=== PATIENT | male | born 1945 | race Caucasian/White ===

== ENCOUNTER 2021-06-27 04:03 | Emergency (ER) | payer MEDICARE, OTHER ==
--- NOTE | 2021-06-27 04:19 | EDM.PDOC ---
ED HPI GENERAL MEDICAL PROBLEM - General Chief Complaint: Chest Pain Stated Complaint: [facility] Time Seen by Provider: 06/27/21 04:19 Source of Information: Reports: Patient History Limitations: Reports: No Limitations - History of Present Illness INITIAL COMMENTS - FREE TEXT/NARRATIVE: Patient is a 75-year-old male who is complaining of having mid chest tightness which he describes as pressure-like which started at 5 PM last night and has continued through the morning. Patient denies any diaphoresis, shortness of breath or nausea vomiting. Symptoms are slightly worse with exertion. He denies any fever or chills. Patient does have mild nonproductive cough but denies all other Covid symptoms. Patient is up-to-date with his Covid vaccines. He denies any swelling to his calves or ankles and denies any bloody or tarry stools. He has not had similar symptoms in the past. Patient did take an aspirin at home and took some of his 's nitroglycerin which did lower his chest pain from 8 out of 10 to 5 out of 10 in intensity. 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: Reports: EKG, IV/IO Mid-Sternal Chest Pain Score (Numeric/FACES): 1 - Related Data Allergies Allergy/AdvReac Type Severity Reaction Status Date / Time No Known Allergies Allergy Verified 06/27/21 04:07 Home Meds: Home Meds Aspirin 81 mg PO DAILY 06/27/21 [History] Past Medical History - Past Health History Medical/Surgical History: Denies Medical/Surgical History HEENT History: Reports: Impaired Vision Other HEENT History: Wears glasses - Past Surgical History GI Surgical History: Reports: Colonoscopy ED ROS GENERAL - Review of Systems Review Of Systems: See Below Constitutional: Reports: No Symptoms HEENT: Reports: No Symptoms Respiratory: Reports: No Symptoms. Denies: Shortness of Breath, Pleuritic Chest Pain Cardiovascular: Reports: Chest Pain. Denies: Dyspnea on Exertion GI/Abdominal: Reports: No Symptoms : Reports: No Symptoms Musculoskeletal: Reports: No Symptoms Skin: Reports: No Symptoms Neurological: Reports: No Symptoms ED EXAM, GENERAL - Physical Exam Exam: See Below Exam Limited By: No Limitations General Appearance: Alert, No Apparent Distress Head: Normocephalic Neck: Supple Respiratory/Chest: No Respiratory Distress, Lungs Clear, Normal Breath Sounds Cardiovascular: Regular Rate, Rhythm, No Edema, No JVD GI/Abdominal: Normal Bowel Sounds, Soft, Non-Tender Back Exam: Normal Inspection Extremities: Normal Inspection Neurological: Alert, Oriented Psychiatric: Normal Affect Skin Exam: Warm, Dry #1 Interpretation Rhythm: NSR P-Wave: Present QRS: Normal ST-T: Depressed (Leads V4 [address] depression approximately 1 mm. No reciprocal changes appreciated.) EKG Interpretation Comments: Lateral ischemia without reciprocal changes. Course - Vital Signs Text/Narrative:: Patient's elevated D-dimer at 1.53 turned out to be negative for PE since none was shown on his CTA of the chest. Patient's elevated troponin at 0.843 and EKG showing ischemia in the lateral leads is concerning. He had increased pain while in the department which went up to 9 out of 10 intensity and now radiates to his left arm. Patient was then given some morphine and started on a heparin drip which made him more comfortable but we are also starting him on a heparin drip. Patient was discussed with Dr. Richardson brake reliner on duty at [facility] in [place] who recommended that we start him on Lopressor 25 mg p.o. and also 40 of Lipitor. He is recommending patient be transferred to another hospital since they're unable to accept him currently and we have called [facility] in [place] who were not able to accept him also [facility] is not able to take any N STEMI patients. We currently have a call out to [facility]. Patient's blood pressure is now 126/74 with a pulse of 92. [facility] has no beds but patient has been accepted by Dr. Sanchez at [facility] who is the emergency department physician who is excepted him in direct transfer to their emergency department. He has asked that we fax the EKG to him which we have just done. After starting the nitro drip patient is completely pain-free prior to his being transferred to [facility] Last Recorded V/S: Last Vital Signs Temp 96.8 F L 06/27/21 04:08 Pulse 98 06/27/21 06:35 Resp 13 06/27/21 04:08 BP 126/78 06/27/21 06:35 Pulse Ox 97 06/27/21 04:08 - Orders/Labs/Meds Labs: Laboratory Tests 06/27/21 06/27/21 06/27/21 Range/Units 04:21 04:21 04:21 WBC 7.80 (4.23-9.07) K/mm3 RBC 4.43 L (4.63-6.08) M/mm3 Hgb 14.5 (13.7-17.5) gm/dl Hct 44.0 (40.1-51.0) % MCV 99.3 H (79.0-92.2) fl MCH 32.7 H (25.7-32.2) pg MCHC 33.0 (32.2-35.5) g/dl RDW Std Deviation 49.3 H (35.1-43.9) fL Plt Count 179 (163-337) K/mm3 MPV 10.6 (9.4-12.3) fl Neutrophils % (Manual) 60 (40-60) % Band Neutrophils % 0 (0-10) % Lymphocytes % (Manual) 26 (20-40) % Atypical Lymphs % 0 % Monocytes % (Manual) 12 H (2-10) % Eosinophils % (Manual) 1 (0.8-7.0) % Basophils % (Manual) 1 (0.2-1.2) Platelet Estimate Adequate RBC Morph Comment Normal APTT (21.7-31.4) SECONDS D-Dimer, Quantitative 1.53 H (0.19-0.50) mg/L Sodium 143 (136-145) mEq/L Potassium 3.8 (3.5-5.1) mEq/L Chloride 106 (98-107) mEq/L Carbon Dioxide 29 (21-32) mEq/L Anion Gap 11.8 (5-15) BUN 21 H (7-18) mg/dL Creatinine 1.1 (0.7-1.3) mg/dL Est Cr Clr Drug Dosing 47.84 mL/min Estimated GFR (MDRD) > 60 (>60) mL/min BUN/Creatinine Ratio 19.1 H (14-18) Glucose 104 H (70-99) mg/dL Calcium 8.2 L (8.5-10.1) mg/dL Total Bilirubin 0.6 (0.2-1.0) mg/dL AST 23 (15-37) U/L ALT 26 (16-63) U/L Alkaline Phosphatase 63 (46-116) U/L Troponin I 0.843 H* (0.00-0.056) ng/mL Total Protein 6.8 (6.4-8.2) g/dl Albumin 3.8 (3.4-5.0) g/dl Globulin 3.0 gm/dL Albumin/Globulin Ratio 1.3 (1-2) SARS-CoV-2 RNA (LEXY) (NEGATIVE) 06/27/21 06/27/21 Range/Units 04:21 06:10 WBC (4.23-9.07) K/mm3 RBC (4.63-6.08) M/mm3 Hgb (13.7-17.5) gm/dl Hct (40.1-51.0) % MCV (79.0-92.2) fl MCH (25.7-32.2) pg MCHC (32.2-35.5) g/dl RDW Std Deviation (35.1-43.9) fL Plt Count (163-337) K/mm3 MPV (9.4-12.3) fl Neutrophils % (Manual) (40-60) % Band Neutrophils % (0-10) % Lymphocytes % (Manual) (20-40) % Atypical Lymphs % % Monocytes % (Manual) (2-10) % Eosinophils % (Manual) (0.8-7.0) % Basophils % (Manual) (0.2-1.2) Platelet Estimate RBC Morph Comment APTT 27.4 (21.7-31.4) SECONDS D-Dimer, Quantitative (0.19-0.50) mg/L Sodium (136-145) mEq/L Potassium (3.5-5.1) mEq/L Chloride (98-107) mEq/L Carbon Dioxide (21-32) mEq/L Anion Gap (5-15) BUN (7-18) mg/dL Creatinine (0.7-1.3) mg/dL Est Cr Clr Drug Dosing mL/min Estimated GFR (MDRD) (>60) mL/min BUN/Creatinine Ratio (14-18) Glucose (70-99) mg/dL Calcium (8.5-10.1) mg/dL Total Bilirubin (0.2-1.0) mg/dL AST (15-37) U/L ALT (16-63) U/L Alkaline Phosphatase (46-116) U/L Troponin I (0.00-0.056) ng/mL Total Protein (6.4-8.2) g/dl Albumin (3.4-5.0) g/dl Globulin gm/dL Albumin/Globulin Ratio (1-2) SARS-CoV-2 RNA (LEXY) Negative (NEGATIVE) Meds: Medications Discontinued Medications Generic Name Dose Route Start Last Admin Trade Name Freq PRN Reason Stop Dose Admin Acetaminophen 975 mg 06/27/21 04:21 06/27/21 04:35 Acetaminophen 325 Mg Tab PO 06/27/21 04:22 975 mg NOW STA Administration Atorvastatin Calcium 40 mg 06/27/21 06:28 06/27/21 06:35 Atorvastatin 40 Mg Tab PO 06/27/21 06:29 40 mg ONETIME ONE Administration Heparin Sodium (Porcine) 5,000 units 06/27/21 05:54 06/27/21 06:29 Heparin Sodium 5,000 Units/Ml Vial IVPUSH 06/27/21 05:55 Not Given ONETIME ONE Heparin Sodium (Porcine) 4,000 units 06/27/21 05:54 06/27/21 06:19 Heparin Sodium 5,000 Units/Ml Vial IVPUSH 06/27/21 05:55 4,000 units .BOLUS ONE Administration Sodium Chloride 100 mls @ 60 mls/min 06/27/21 05:30 06/27/21 05:59 Normal Saline IV 60 mls/min ASDIRECTED PALAK Administration Heparin Sodium/Dextrose 25,000 units in 500 mls @ 15.241 mls/hr 06/27/21 06:00 06/27/21 06:20 Heparin 25,000 Units In D5w 500 Ml IV 12 units/kg/hr TITRATE PALAK 15.241 mls/hr Administration Protocol 12 UNITS/KG/HR Nitroglycerin/Dextrose 25 mg in 250 mls @ 3 mls/hr 06/27/21 06:45 06/27/21 06:48 Nitroglycerin 25 Mg/D5w 250 Ml IV 5 mcg/min TITRATE PALAK 3 mls/hr Administration Protocol 5 MCG/MIN Iopamidol 100 ml 06/27/21 05:30 06/27/21 05:59 Iopamidol 755 Mg/Ml 100 Ml Bottle IVPUSH 06/27/21 05:31 100 ml ONETIME ONE Administration Metoprolol Tartrate 25 mg 06/27/21 06:27 06/27/21 06:35 Metoprolol Tartrate 25 Mg Tab PO 06/27/21 06:28 25 mg ONETIME ONE Administration Morphine Sulfate 4 mg 06/27/21 06:07 06/27/21 06:22 Morphine 4 Mg/Ml Syringe IVPUSH 06/27/21 06:08 4 mg ONETIME ONE Administration Nitroglycerin 1 gm 06/27/21 04:21 06/27/21 04:35 Nitroglycerin 2% Oint 1 Gm Ud Packet TOP 06/27/21 04:22 1 gm ONETIME ONE Administration Sodium Chloride 10 ml 06/27/21 05:30 06/27/21 05:59 Sodium Chloride 0.9% 10 Ml Sdv FLUSH 06/27/21 05:31 10 ml ONETIME ONE Administration Departure - Departure Time of Disposition: 07:06 Disposition: DC/Tfer to Acute Hospital 02 Reason for Transfer *Q: Primary PCI Indicated Condition: Fair Clinical Impression: Non-STEMI (non-ST elevated myocardial infarction), Acute coronary syndrome Referrals: PCP,Not In Area [Primary Care Provider] - Sepsis Event Note (ED) - Evaluation Sepsis Screening Result: No Definite Risk
[2021-06-27] MEDS ORDERED: Acetaminophen 325 MG Tab PO STA (04:21)
[2021-06-27] MEDS ORDERED: Nitroglycerin 2% Oint 1 GM UD Packet TOP ONE (04:21)
[2021-06-27] MEDS ORDERED: Sodium Chloride 0.9% 10 ML SDV FLUSH ONE (05:30)
[2021-06-27] MEDS ORDERED: Iopamidol 755 Mg/ML 100 ML Bottle IVPUSH ONE (05:30)
[2021-06-27] MEDS ORDERED: Sodium Chloride 0.9% 100 ML IV SCH (05:30)
[2021-06-27] MEDS ORDERED: Heparin Sodium 5,000 Units/ML Vial IVPUSH ONE ×2 (05:54)
--- NOTE | 2021-06-27 05:55 | CR ---
Chest: Frontal view of the chest was obtained. Comparison: No prior chest imaging is available. Limitations: Study is somewhat suboptimal (overexposed in technique) which obscures portions of the upper left lung. No definite acute parenchymal change is seen within either lung. Heart size and mediastinum are normal. Bony structure shows minimal scattered degenerative change with no acute findings seen within the visualized osseous structures. Impression: 1. Slightly suboptimal technique. 2. No definite acute intrathoracic process is otherwise seen. Diagnostic code #2
[2021-06-27] MEDS ORDERED: Heparin Sodium/D5W 25,000 UNITS/500 ML BAG IV SCH (06:00)
[2021-06-27] MEDS ORDERED: Morphine 4 MG/ML Syringe IVPUSH ONE (06:07)
--- NOTE | 2021-06-27 06:23 | CT ---
CT chest Technique: Multiple axial sections were obtained through the chest. Intravenous contrast was utilized. Study has been performed as a pulmonary angiogram protocol. Comparison: Prior chest x-ray performed earlier on the same day (4:34 AM). No prior chest CT is available. Findings: Pulmonary arteries are well opacified. No filling defects are seen to indicate pulmonary embolism. Ascending aorta is slightly aneurysmal with AP dimension of 3.3 cm. Descending aorta appears within normal limits. Mediastinum shows no adenopathy. No axillary adenopathy is seen. Heart size appears slightly enlarged. No pericardial thickening is appreciated Cyst is noted within the left kidney measuring 2.3 cm. Multiple calcifications are seen within the kidneys compatible with nonobstructing stones. Calcifications are also seen within the spleen compatible with calcified granulomas. There is coronary artery calcification being seen. Lungs show minimal bibasilar atelectasis. Slight density is also noted within the right upper lung most likely representing mild area of scarring. Several other small densities are seen within the right upper lung which are also felt to represent minimal areas of scarring. No acute parenchymal change is seen. Bone window settings were reviewed. Scattered disc space narrowing and endplate spurring is noted within the spine. No acute osseous abnormality is appreciated. Impression: 1. Slight bibasilar atelectasis. Mild areas of scarring within the right upper lung. No acute parenchymal change is seen. 2. Cyst within the left kidney. Nonobstructing calculi within both kidneys. Calcified granulomas are seen within the spleen. Coronary artery calcification. Mild aneurysmal dilatation of the ascending aorta. 3. No findings of pulmonary embolism. Diagnostic code #3
[2021-06-27] MEDS ORDERED: Metoprolol Tartrate 25 MG Tab PO ONE (06:27)
[2021-06-27] MEDS ORDERED: atorvaSTATin 40 MG Tab PO ONE (06:28)
[2021-06-27 06:36] VITALS: BP 126/78; PULSE 98
[2021-06-27] MEDS ORDERED: Nitroglycerin/D5W 25 MG/250 ML BOTTLE IV SCH (06:45)
--- NOTE | 2021-07-01 05:05 | PCM.EKG ---
#1 Interpretation EKG Date: 06/27/21 Time: 05:50 Rhythm: NSR Rate (Beats/Min): 82 [place]: Normal P-Wave: Present QRS: Normal ST-T: Depressed (V3-V6) QT: Normal
== END 2021-06-27 08:20 ==
LOC: JD.ED 04:03
DX: I21.4 Non-ST elevation (NSTEMI) myocardial infarction (principal); I24.9 Acute ischemic heart disease, unspecified; Z79.82 Long term (current) use of aspirin; Z20.822 Contact with and (suspected) exposure to COVID-19
CPT/HCPCS: 36415; 71045; 71275; 80053; 84484; 85007; 85027; 85379; 85730; 93005; 96365; 96366; 96368; 96375; 99285; A9270; J1644; J2270; J3490; Q9967; U0002

== ENCOUNTER 2021-10-07 09:24 | Emergency (ER) | payer MEDICARE ==
[2021-10-07] MEDS ORDERED: Sodium Chloride 0.9% 10 ML Syringe FLUSH PRN (09:50)
[2021-10-07] MEDS ORDERED: Acetaminophen 325 MG Tab PO ONE (09:51)
[2021-10-07] MEDS ORDERED: Sodium Chloride 0.9% 1,000 ML IV SCH (10:00)
[2021-10-07 11:25] LABS: CORONAVIRUS COVID-19 NAA POSITIVE (NEGATIVE)
[2021-10-07 14:24] VITALS: BP 154/73; PULSE 110
== END 2021-10-07 14:10 | disposition home or self-care (01) ==
LOC: JD.ED 09:24
DX: U07.1 COVID-19 (principal); I25.10 Atherosclerotic heart disease of native coronary artery without angina pectoris; I25.2 Old myocardial infarction; Z79.899 Other long term (current) drug therapy; Z79.02 Long term (current) use of antithrombotics/antiplatelets
CPT/HCPCS: 0241U; 36415; 71045; 71045-26; 80053; 83605; 85025; 86140; 86308; 87651-QW; 99284; 99284-25; A9270-GY; J7030

== ENCOUNTER 2021-10-12 16:27 | Inpatient (IN) | payer MEDICARE ==
[2021-10-12] MEDS ORDERED: Acetaminophen 325 MG Tab PO ONE (16:42)
[2021-10-12] MEDS ORDERED: Dextrose 5%-Lactated Ringers 1,000 ML IV SCH ×2 (16:45→21:30)
[2021-10-12] MEDS ORDERED: REMDESIVIR 200 MG in Sodium Chloride 0.9% 250 ML IV ONE (20:55)
[2021-10-12] MEDS ORDERED: cefTRIAXone 2 GM in Sodium Chloride 0.9% 100 ML IV ONE (21:03)
[2021-10-12] MEDS ORDERED: Sodium Chloride 0.9% 250 ML IV ONE (22:30)
[2021-10-13] MEDS ORDERED: Dexamethasone 4 MG Tab PO SCH (09:00)
[2021-10-13] MEDS ORDERED: Dexamethasone 10 MG/ML SDV IVPUSH SCH (09:00)
[2021-10-13] MEDS ORDERED: Multivitamins with Iron/Calcium/Folic Acid/Minerals Tab PO SCH (09:00)
[2021-10-13] MEDS: Aspirin 81 MG Tab.EC PO SCH (09:45)
[2021-10-13] MEDS: Famotidine 20 MG Tab PO SCH (09:45)
[2021-10-13] MEDS: Calcium Carbonate 600 MG Tab PO SCH (09:45)
[2021-10-13] MEDS: Multivitamin Tab PO SCH (09:46)
[2021-10-13] MEDS: Lisinopril 5 MG Tab PO SCH (09:46)
[2021-10-13] MEDS: Metoprolol Tartrate 25 MG Tab PO SCH ×2 (09:46→21:11)
[2021-10-13] MEDS: atorvaSTATin 40 MG Tab PO SCH (09:46)
[2021-10-13] MEDS: Clopidogrel 75 MG Tab PO SCH (09:46)
[2021-10-13] MEDS: Dexamethasone 4 MG Tab PO SCH (09:47)
[2021-10-13] MEDS ORDERED: REMDESIVIR 100 MG in Sodium Chloride 0.9% 100 ML IV SCH (21:00)
[2021-10-13] MEDS: QUEtiapine 25 MG Tab PO SCH (21:09)
[2021-10-13] MEDS: REMDESIVIR 100 MG in Sodium Chloride 0.9% 250 ML IV SCH (21:10)
[2021-10-14] MEDS: Metoprolol Tartrate 25 MG Tab PO SCH ×2 (09:16→21:01)
[2021-10-14] MEDS: Aspirin 81 MG Tab.EC PO SCH (09:16)
[2021-10-14] MEDS: Multivitamin Tab PO SCH (09:16)
[2021-10-14] MEDS: Famotidine 20 MG Tab PO SCH (09:16)
[2021-10-14] MEDS: Lisinopril 5 MG Tab PO SCH (09:16)
[2021-10-14] MEDS: Dexamethasone 4 MG Tab PO SCH (09:17)
[2021-10-14] MEDS: Clopidogrel 75 MG Tab PO SCH (09:17)
[2021-10-14] MEDS: atorvaSTATin 40 MG Tab PO SCH (09:18)
[2021-10-14] MEDS: Calcium Carbonate 600 MG Tab PO SCH (09:18)
[2021-10-14] MEDS: Carbidopa/Levodopa 10-100 MG Tab PO SCH ×2 (15:02→21:01)
[2021-10-14] MEDS: Sertraline 50 MG Tab PO SCH (17:20)
[2021-10-14] MEDS: QUEtiapine 25 MG Tab PO SCH (21:01)
[2021-10-14] MEDS: REMDESIVIR 100 MG in Sodium Chloride 0.9% 250 ML IV SCH (21:06)
[2021-10-15] MEDS: Calcium Carbonate 600 MG Tab PO SCH (08:20)
[2021-10-15] MEDS: Famotidine 20 MG Tab PO SCH (08:20)
[2021-10-15] MEDS: Sertraline 50 MG Tab PO SCH (08:21)
[2021-10-15] MEDS: Carbidopa/Levodopa 10-100 MG Tab PO SCH ×2 (08:21→21:37)
[2021-10-15] MEDS: atorvaSTATin 40 MG Tab PO SCH (08:21)
[2021-10-15] MEDS: Multivitamin Tab PO SCH (08:21)
[2021-10-15] MEDS: Lisinopril 5 MG Tab PO SCH (08:21)
[2021-10-15] MEDS: Aspirin 81 MG Tab.EC PO SCH (08:22)
[2021-10-15] MEDS: Clopidogrel 75 MG Tab PO SCH (08:22)
[2021-10-15] MEDS: Metoprolol Tartrate 25 MG Tab PO SCH ×2 (08:22→21:37)
[2021-10-15] MEDS ORDERED: LORazepam 2 MG/ML SDV IVPUSH ONE (18:37)
[2021-10-15] MEDS ORDERED: Sodium Chloride 0.9% 500 ML IV ONE (19:19)
[2021-10-15] MEDS ORDERED: Sodium Chloride 0.9% 500 ML ONE (19:21)
[2021-10-15] MEDS: QUEtiapine 25 MG Tab PO SCH (21:37)
[2021-10-15] MEDS: REMDESIVIR 100 MG in Sodium Chloride 0.9% 250 ML IV SCH (21:40)
[2021-10-16] MEDS: Calcium Carbonate 600 MG Tab PO SCH (09:38)
[2021-10-16] MEDS: Clopidogrel 75 MG Tab PO SCH (09:42)
[2021-10-16] MEDS: Sertraline 50 MG Tab PO SCH (09:42)
[2021-10-16] MEDS: Multivitamin Tab PO SCH (09:43)
[2021-10-16] MEDS: Aspirin 81 MG Tab.EC PO SCH (09:43)
[2021-10-16] MEDS: Lisinopril 5 MG Tab PO SCH (09:43)
[2021-10-16] MEDS: Famotidine 20 MG Tab PO SCH (09:43)
[2021-10-16] MEDS: Carbidopa/Levodopa 10-100 MG Tab PO SCH ×2 (09:43→20:01)
[2021-10-16] MEDS: atorvaSTATin 40 MG Tab PO SCH (09:43)
[2021-10-16] MEDS: Metoprolol Tartrate 25 MG Tab PO SCH ×2 (09:44→20:01)
[2021-10-16] MEDS ORDERED: Enoxaparin 30 MG/0.3 ML Syringe SUBCUT SCH (11:00)
[2021-10-16] MEDS ORDERED: Haloperidol Lactate 5 MG/ML SDV IVPUSH ONE (12:26)
[2021-10-16] MEDS: REMDESIVIR 100 MG in Sodium Chloride 0.9% 250 ML IV SCH (20:01)
[2021-10-16] MEDS: QUEtiapine 25 MG Tab PO SCH (20:02)
[2021-10-17] MEDS: Famotidine 20 MG Tab PO SCH (08:21)
[2021-10-17] MEDS: Aspirin 81 MG Tab.EC PO SCH (08:21)
[2021-10-17] MEDS: Calcium Carbonate 600 MG Tab PO SCH (08:21)
[2021-10-17] MEDS: Metoprolol Tartrate 25 MG Tab PO SCH ×2 (08:22→20:47)
[2021-10-17] MEDS: Carbidopa/Levodopa 10-100 MG Tab PO SCH ×2 (08:22→20:47)
[2021-10-17] MEDS: Multivitamin Tab PO SCH (08:22)
[2021-10-17] MEDS: atorvaSTATin 40 MG Tab PO SCH (08:22)
[2021-10-17] MEDS: Sertraline 50 MG Tab PO SCH (08:22)
[2021-10-17] MEDS: Clopidogrel 75 MG Tab PO SCH (08:25)
[2021-10-17] MEDS: Lisinopril 5 MG Tab PO SCH (08:25)
[2021-10-17] MEDS: Enoxaparin 40 MG/0.4 ML Syringe SUBCUT SCH (12:45)
[2021-10-17] MEDS ORDERED: LORazepam 2 MG/ML SDV IVPUSH ONE (21:29)
[2021-10-18] MEDS: Carbidopa/Levodopa 10-100 MG Tab PO SCH ×2 (09:38→22:27)
[2021-10-18] MEDS: Sertraline 50 MG Tab PO SCH (09:38)
[2021-10-18] MEDS: Calcium Carbonate 600 MG Tab PO SCH (09:38)
[2021-10-18] MEDS: Metoprolol Tartrate 25 MG Tab PO SCH ×2 (09:38→22:22)
[2021-10-18] MEDS: Famotidine 20 MG Tab PO SCH (09:39)
[2021-10-18] MEDS: Multivitamin Tab PO SCH (09:39)
[2021-10-18] MEDS: Clopidogrel 75 MG Tab PO SCH (09:39)
[2021-10-18] MEDS: Lisinopril 5 MG Tab PO SCH (09:39)
[2021-10-18] MEDS: atorvaSTATin 40 MG Tab PO SCH (09:39)
[2021-10-18] MEDS: Aspirin 81 MG Tab.EC PO SCH (09:39)
[2021-10-18] MEDS: Enoxaparin 40 MG/0.4 ML Syringe SUBCUT SCH (11:58)
[2021-10-18] MEDS ORDERED: LORazepam 2 MG/ML SDV ONE (22:13)
[2021-10-18] MEDS ORDERED: LORazepam 1 MG Tab PO ONE (22:45)
[2021-10-19] MEDS: Clopidogrel 75 MG Tab PO SCH (09:43)
[2021-10-19] MEDS: atorvaSTATin 40 MG Tab PO SCH (09:43)
[2021-10-19] MEDS: Calcium Carbonate 600 MG Tab PO SCH (09:43)
[2021-10-19] MEDS: Multivitamin Tab PO SCH (09:43)
[2021-10-19] MEDS: Carbidopa/Levodopa 10-100 MG Tab PO SCH ×2 (09:43→20:22)
[2021-10-19] MEDS: Lisinopril 5 MG Tab PO SCH (09:43)
[2021-10-19] MEDS: Aspirin 81 MG Tab.EC PO SCH (09:43)
[2021-10-19] MEDS: Sertraline 50 MG Tab PO SCH (09:43)
[2021-10-19] MEDS: Metoprolol Tartrate 25 MG Tab PO SCH ×2 (09:44→20:22)
[2021-10-19] MEDS: Famotidine 20 MG Tab PO SCH (09:44)
[2021-10-19] MEDS: Enoxaparin 40 MG/0.4 ML Syringe SUBCUT SCH (12:34)
[2021-10-19] MEDS: Haloperidol 0.5 MG Tab PO PRN ×2 (16:13→23:16)
[2021-10-19] MEDS ORDERED: LORazepam 2 MG/ML SDV IVPUSH ONE (18:23)
[2021-10-20] MEDS: Metoprolol Tartrate 25 MG Tab PO SCH (10:20)
[2021-10-20] MEDS: Calcium Carbonate 600 MG Tab PO SCH (10:20)
[2021-10-20] MEDS: Clopidogrel 75 MG Tab PO SCH (10:21)
[2021-10-20] MEDS: atorvaSTATin 40 MG Tab PO SCH (10:21)
[2021-10-20] MEDS: Famotidine 20 MG Tab PO SCH (10:21)
[2021-10-20] MEDS: Carbidopa/Levodopa 10-100 MG Tab PO SCH (10:21)
[2021-10-20] MEDS: Aspirin 81 MG Tab.EC PO SCH (10:22)
[2021-10-20] MEDS: Multivitamin Tab PO SCH (10:22)
[2021-10-20] MEDS: Sertraline 50 MG Tab PO SCH (10:22)
[2021-10-20] MEDS: Lisinopril 5 MG Tab PO SCH (10:22)
[2021-10-20 10:23] VITALS: PULSE 73
[2021-10-20 11:20] VITALS: BP 131/66
== END 2021-10-20 13:15 | DRG 177 ==
LOC: JD.ED 16:27 → JD.ICU 19:48
PROVIDERS: ADMIT Pediatrics; ATTEND Pediatrics
PROC: XW033E5 Introduction of Remdesivir Anti-infective into Peripheral Vein, Percutaneous Approach, New Technology Group 5 (ICD-10-PCS; principal; 2021-10-12)
PROC: 8E0ZXY6 Isolation (ICD-10-PCS; 2021-10-12)
PROC: 3E0DX3Z Introduction of Anti-inflammatory into Mouth and Pharynx, External Approach (ICD-10-PCS; 2021-10-14)
DX: U07.1 COVID-19 (principal); S09.90XA Unspecified injury of head, initial encounter; W19.XXXA Unspecified fall, initial encounter; J96.21 Acute and chronic respiratory failure with hypoxia; J12.82 Pneumonia due to coronavirus disease 2019; I25.810 Atherosclerosis of coronary artery bypass graft(s) without angina pectoris; Z91.81 History of falling; I50.9 Heart failure, unspecified; G20 Parkinson's disease; F02.80 Dementia in other diseases classified elsewhere, unspecified severity, without behavioral disturbance, psychotic disturbance, mood disturbance, and anxiety; Z95.5 Presence of coronary angioplasty implant and graft; Z79.02 Long term (current) use of antithrombotics/antiplatelets; Z79.82 Long term (current) use of aspirin; Z79.899 Other long term (current) drug therapy; H54.7 Unspecified visual loss; I25.10 Atherosclerotic heart disease of native coronary artery without angina pectoris; I25.2 Old myocardial infarction; J44.9 Chronic obstructive pulmonary disease, unspecified; N40.0 Benign prostatic hyperplasia without lower urinary tract symptoms; G89.29 Other chronic pain; M54.9 Dorsalgia, unspecified; M54.2 Cervicalgia; M19.90 Unspecified osteoarthritis, unspecified site; M81.0 Age-related osteoporosis without current pathological fracture; Z86.73 Personal history of transient ischemic attack (TIA), and cerebral infarction without residual deficits
CPT/HCPCS: 36415; 36600; 70450; 71045; 80053; 81001; 82803; 83605; 83615; 83735; 83880; 84484; 85025; 85379; 85610; 85730; 86140; 87040 ×2; 93005; A9270; J7121; 80048; 80076; 82728; 84145; 93010; 97116-GP; 97162-GP; 97530-GP; 99285; J0696; J1630; J1650; J2060; J7030; J7050; J8540

== ENCOUNTER 2021-12-23 07:19 | Emergency (ER) | payer MEDICARE, OTHER ==
[2021-12-23] MEDS ORDERED: Sodium Chloride 0.9% 1,000 ML IV ONE (07:25)
[2021-12-23] MEDS ORDERED: Sodium Chloride 0.9% 10 ML Syringe FLUSH PRN (07:26)
[2021-12-23] MEDS ORDERED: fentaNYL 100 MCG/2 ML SDV IVPUSH ONE (07:26)
[2021-12-23 10:17] VITALS: BP 112/77; PULSE 77
== END 2021-12-23 10:17 ==
LOC: JD.ED 07:19
DX: S93.602A Unspecified sprain of left foot, initial encounter (principal); I25.10 Atherosclerotic heart disease of native coronary artery without angina pectoris; I25.2 Old myocardial infarction; N40.0 Benign prostatic hyperplasia without lower urinary tract symptoms; M19.90 Unspecified osteoarthritis, unspecified site; Z79.82 Long term (current) use of aspirin; Z79.899 Other long term (current) drug therapy; W18.30XA Fall on same level, unspecified, initial encounter
CPT/HCPCS: 36415; 73610; 73630; 80053; 81003; 82553; 85007; 85027; 96374; 99284; J3010; J3490; J7030

== ENCOUNTER 2021-12-27 10:31 | Emergency (ER) | payer MEDICARE, OTHER ==
[2021-12-27 13:54] VITALS: BP 132/77; PULSE 68
== END 2021-12-27 13:54 | disposition home or self-care (01) ==
LOC: JD.ED 10:31
DX: M25.552 Pain in left hip (principal); I50.9 Heart failure, unspecified; I25.10 Atherosclerotic heart disease of native coronary artery without angina pectoris; I25.2 Old myocardial infarction; J44.9 Chronic obstructive pulmonary disease, unspecified; Z86.16 Personal history of COVID-19; Z79.899 Other long term (current) drug therapy; W22.8XXA Striking against or struck by other objects, initial encounter
CPT/HCPCS: 73502-26-RT; 73502-RT; 99283-25

== ENCOUNTER 2022-07-19 14:08 | Emergency (ER) | payer MEDICARE, OTHER ==
[2022-07-19 16:07] LABS: ESTIMATED GFR 69 mL/min (>60)
[2022-07-19 16:30] VITALS: PULSE 96
[2022-07-19 19:43] VITALS: BP 130/78
== END 2022-07-19 18:10 ==
LOC: JD.ED 14:08
DX: R55 Syncope and collapse (principal); I25.10 Atherosclerotic heart disease of native coronary artery without angina pectoris; I25.2 Old myocardial infarction; Z88.8 Allergy status to other drugs, medicaments and biological substances; Z86.73 Personal history of transient ischemic attack (TIA), and cerebral infarction without residual deficits; Z86.16 Personal history of COVID-19
CPT/HCPCS: 36415; 70450; 70450-26; 80053; 81001; 84484; 85025; 86140; 93005; 99285

== ENCOUNTER 2022-08-03 17:17 | Emergency (ER) | payer MEDICARE, OTHER ==
[2022-08-03] MEDS ORDERED: Sodium Chloride 0.9% 10 ML Syringe FLUSH PRN (17:47)
[2022-08-03 19:54] VITALS: BP 177/97; PULSE 93
== END 2022-08-03 20:31 | disposition home or self-care (01) ==
LOC: JD.ED 17:17
DX: R07.89 Other chest pain (principal); I25.10 Atherosclerotic heart disease of native coronary artery without angina pectoris; I11.0 Hypertensive heart disease with heart failure; I25.2 Old myocardial infarction; J44.9 Chronic obstructive pulmonary disease, unspecified; Z88.8 Allergy status to other drugs, medicaments and biological substances; Z79.899 Other long term (current) drug therapy
CPT/HCPCS: 36415; 71045; 80053; 84484; 85025; 93005; 99285

== ENCOUNTER 2024-07-31 09:07 | Emergency (ER) | payer MEDICARE ==
[2024-07-31] MEDS ORDERED: Sodium Chloride 0.9% 10 ML Syringe FLUSH PRN (09:28)
[2024-07-31 09:57] LABS: BASOPHILS ABSOLUTE AUTO 0.1 K/mm3 (0.0-0.2); BASOPHILS PERCENT AUTO 0.4 % (0.0-1.0); EOSINOPHILS PERCENT AUTO 0.1 % (0.0-6.0); HEMATOCRIT 40.6 % (42.0-52.0); HEMOGLOBIN 13.1 gm/dl (14.0-18.0); IMMATURE GRAN ABSOLUTE AUTO 0.04 K/mm3 (0.00-0.05); IMMATURE GRAN PERCENT AUTO 0.3 % (0.0-0.4); LYMPHOCYTES PERCENT AUTO 15.1 % (24.0-44.0); MEAN CORPUSCULAR HEMOGLOBIN 33.3 pg (28.0-32.0); MEAN CORPUSCULAR HGB CONC 32.3 g/dl (32.0-36.0); MEAN CORPUSCULAR VOLUME 103.3 fl (83.0-99.0); MEAN PLATELET VOLUME 10.9 fl (9.4-12.4); MONOCYTES ABSOLUTE AUTO 0.9 K/mm3 (0.0-0.8); MONOCYTES PERCENT AUTO 6.4 % (0.0-8.0); NEUTROPHILS ABSOLUTE AUTO 10.5 K/mm3 (1.8-7.7); NEUTROPHILS PERCENT AUTO 77.7 % (41.0-71.0); PLATELET COUNT,PLT 181 K/mm3 (150-400); RED BLOOD CELL COUNT 3.93 M/mm3 (4.52-5.90); WHITE BLOOD CELL COUNT,WBC 13.55 K/mm3 (3.9-11.3)
[2024-07-31 09:58] LABS: BICARBONATE,VENOUS 27.1 meq/L (22-26); O2 SATURATION VENOUS 48.8; PCO2 VENOUS 51.9 mmHg (41-51); PH,VENOUS 7.34 (7.30-7.40)
[2024-07-31] MEDS: Sodium Chloride 0.9% 500 ML IV ONE (10:17)
[2024-07-31 10:36] LABS: A/G RATIO 1.1 (1-2); ALBUMIN 3.6 g/dl (3.4-5.0); BILIRUBIN TOTAL 1.2 mg/dL (0.2-1.0); BUN/CREATININE RATIO 17.7 (14-18); CALCIUM 8.4 mg/dL (8.5-10.1); CREATININE 1.3 mg/dL (0.7-1.3); EST CRCL DRUG DOSING (CG) 34.08 mL/min; MAGNESIUM 2.1 mg/dL (1.8-2.4); PROTEIN TOTAL,TP 6.9 g/dl (6.4-8.2); TSH 0.758 uIU/mL (0.358-3.74)
[2024-07-31 10:40] LABS: CORONAVIRUS COVID-19 NAA POSITIVE (NEGATIVE); INFLUENZA A NAA NEGATIVE (NEGATIVE); RESPIRATORY SYNCYTIAL VIR NAA NEGATIVE (NEGATIVE)
[2024-07-31 15:56] VITALS: BP 153/76; PULSE 98
== END 2024-07-31 15:56 ==
LOC: JD.ED 09:07
DX: U07.1 COVID-19 (principal); R46.4 Slowness and poor responsiveness; I50.9 Heart failure, unspecified; J44.9 Chronic obstructive pulmonary disease, unspecified; Z86.16 Personal history of COVID-19; Z79.899 Other long term (current) drug therapy; Z88.8 Allergy status to other drugs, medicaments and biological substances
CPT/HCPCS: 0241U; 36415; 71045; 80053; 82803; 83605; 83735; 83880; 84443; 84484; 85025; 87040; 96360; 99284; J7030